=== PATIENT | female | born 1990 | race Caucasian/White ===

== ENCOUNTER 2019-02-03 13:45 | Emergency (ER) | payer SELFPAY ==
[~2019-02-03] VITALS: Ht 157.5 cm; Wt 68.0 kg
[2019-02-03 15:03] LABS: BILIRUBIN,URINE 1+ (NEGATIVE); CLARITY,URINE SL CLOUDY (CLEAR); COLOR,URINE YELLOW (YELLOW); KETONES,URINE 1+ (NEGATIVE); LEUKOCYTE ESTERASE ,URINE NEGATIVE (NEGATIVE); NITRITE,URINE NEGATIVE (NEGATIVE); PREGNANCY TEST, URINE NEGATIVE (NEGATIVE); PROTEIN,URINE DIPSTICK NEGATIVE (NEGATIVE); URINE UROBILINOGEN 0.2 mg/dL (0.2 - 1)
[2019-02-03 15:15] LABS: BACTERIA,URINE MODERATE /HPF; MUCUS,URINE MANY (RARE)
[2019-02-03 15:16] LABS: EPITHELIAL CELLS,URINE MODERATE /LPF
[2019-02-03] MEDS ORDERED: ONDANSETRON HCL INJ 2MG/ML 2ML 2 MG/ML VIAL IV STA (15:50)
[2019-02-03] MEDS ORDERED: MORPHINE SULFATE 2 MG/ML SYR 1ML IV STA (15:50)
[2019-02-03] MEDS ORDERED: SODIUM CHLORIDE 0.9% 1000ML 1,000 ML IV STA ×2 (15:50)
[2019-02-03 16:29] LABS: BASOPHILS % 0.3 % (0.0-1.0); EOSINOPHILS % 0.3 % (0.0-6.0); HEMATOCRIT 39.8 % (34.2-44.1); LYMPHOCYTES # (AUTO) 1.8 (1.0-3.2); LYMPHOCYTES % 19.1 % (18.0-39.1); MEAN CORPUSCULAR HEMOGLOBIN 29.5 pg (28-32); MEAN CORPUSCULAR HGB CONC 32.7 g/dL (31-35); MEAN CORPUSCULAR VOLUME 90.2 fL (81-99); MONOCYTES # (AUTO) 0.7 (0.2-0.8); NEUTROPHILS # (AUTO) 6.6 (2.1-6.9); NEUTROPHILS % 71.9 % (38.7-80.0); PLATELET COUNT 348 x10e3/uL (140-360); RED BLOOD COUNT 4.41 x10e6/uL (3.6-5.1); RED CELL DISTRIBUTION WIDTH 12.5 % (11.7-14.4)
[2019-02-03] MEDS ORDERED: PANTOPRAZOLE 40 MG 10ML VIAL IV ONE (16:30)
--- NOTE | 2019-02-03 16:34 | Diagnostic Imaging Report ---
EXAM: US GALLBLADDER DATE: 02/03/2019 3:50 PM INDICATION: Abdominal pain COMPARISON: None FINDINGS: The visualized pancreas is unremarkable. The liver is normal in size measuring 10.7 cm in length. Hepatic echogenicity is within normal limits. No focal hepatic abnormality is identified. The main portal vein is patent with antegrade flow and diameter of 0.7 cm, within normal limits. Multiple shadowing stones are identified within the gallbladder. There is no evidence for gallbladder distention, wall thickening, or pericholecystic fluid. There is no intra or extra hepatic biliary ductal dilatation. The common bile duct measures 3 mm. Sonographic Stein's sign is negative. The right kidney is normal in size measuring 10.2 cm in length with normal cortical thickness and echogenicity. There is no evidence for solid renal mass, hydronephrosis, or shadowing calculi within the right kidney. The visualized portions the IVC and aorta are within normal limits. There is no ascites visualized. IMPRESSION: Cholelithiasis without sonographic evidence for acute cholecystitis. Signed by: Dr. Laron Wolf MD on 02/03/2019 4:31 PM
[2019-02-03 16:48] LABS: ALANINE AMINOTRANSFERASE 11 IU/L (0-55); ALBUMIN 4.1 g/dL (3.5-5.0); ALBUMIN/GLOBULIN RATIO 1.2 (0.8-2.0); ALKALINE PHOSPHATASE 60 IU/L (40-150); ANION GAP 13.9 mmol/L (8-16); BLOOD UREA NITROGEN 8 mg/dL (7-26); BUN/CREATININE RATIO 10 (6-25); CALCIUM 9.6 mg/dL (8.4-10.2); CARBON DIOXIDE 25 mmol/L (22-29); CHLORIDE 104 mmol/L (98-107); CREATININE, SERUM 0.83 mg/dL (0.57-1.11); EST GLOMERULAR FILTRATION RATE > 60 ML/MIN (60-); GLUCOSE 89 mg/dL (74-118); POTASSIUM 3.9 mmol/L (3.5-5.1); SODIUM 139 mmol/L (136-145)
[2019-02-03 18:16] VITALS: BP 114/66
--- OUTSIDE RECORDS SUMMARY | 2019-02-06 13:34 | XMS REPORT ---
Author Author [facility] Address Unknown Phone Unavailable Care Team Providers Care Deckhand Engineer Name Role Phone STEPHAN HERNANDEZ Unavailable Unavailable Problems This patient has no known problems. Allergies, Adverse Reactions, Alerts This patient has no known allergies or adverse reactions. Medications This patient has no known medications. Results Test Description Test Time Test Comments Text Results Atomic Results Result Comments US GALLBLADDER 2019-02-03 16:29:00 [place] [address] Patient Name: MORELIA CHOWDARY MR #: [id number] : 1990 Age/Sex: 28/F Req #: [id number] Adm Physician: Ordered by: STEPHAN HERNANDEZ MD, MD Report #: [id number] Location: ER Room/Bed: Procedure: [id number] US/US GALLBLADDER Exam Date: Exam Time: REPORT STATUS: Signed EXAM: US GALLBLADDER DATE: 02/03/2019 3:50 PM INDICATION: Abdominal pain COMPARISON: None FINDINGS: The visualized pancreas is unremarkable. The liver is normal in size measuring 10.7 cm in length. Hepatic echogenicity is within normal limits. No focal hepatic abnormality is identified. The main portal vein is patent with antegrade flow and diameter of 0.7 cm, within normal limits. Multiple shadowing stones are identified within the gallbladder. There is no evidence for gallbladder distention, wall thickening, or pericholecystic fluid. There is no intra or extra hepatic biliary ductal dilatation. The common bile duct measures 3 mm. Sonographic Stein's sign is negative. The right kidney is normal in size measuring 10.2 cm in length with normal cortical thickness and echogenicity. There is no evidence for solid renal mass, hydronephrosis, or shadowing calculi within the right kidney. The visualized portions the IVC and aorta are within normal limits. There is no ascites visualized. IMPRESSION: Cholelithiasis without sonographic evidence for acute cholecystitis. Signed by: Dr. Laron Wolf MD on 02/03/2019 4:31 PM Dictated By: LARON WOLF MD [id number] Transcribed By: LILIANE on 02/03/19 1631 COPY TO: STEPHAN HERNANDEZ
== END 2019-02-03 18:21 | disposition home or self-care (01) ==
LOC: ER 13:45
DX: R10.11 Right upper quadrant pain (principal); K80.20 Calculus of gallbladder without cholecystitis without obstruction
CPT/HCPCS: 36415; 76705; 80053; 81001; 81025; 83690; 85025; 99284